=== PATIENT | female | born 1950 | race Caucasian/White ===

== ENCOUNTER → 2020-06-19 | Outpatient (CLI) | payer MEDICARE, OTHER ==
[~2020-06-19] MED LIST: ARAVA 20 MG TAB20 MG PO; AZITHROMYCIN250 MG PO; CLEOCIN HCL300 MG PO; COREG 25MG TAB25 MG PO; GABAPENTIN600 MG PO; HYDROCODON-ACE1 EAC6 PO; IBUPROFEN600 MG PO; PREDNISONE 20 M20 MG GT; PREDNISONE5 MG PO; SYMBICORT 80-10.2 GM INH; VENTOLIN HFA 66.7 GM INH
== END ==
LOC: ECHO 13:00
DX: Z01.810 Encounter for preprocedural cardiovascular examination (principal); I10 Essential (primary) hypertension; I07.1 Rheumatic tricuspid insufficiency
CPT/HCPCS: ECHO; 93306

== ENCOUNTER → 2020-07-27 | Outpatient (CLI) | payer MEDICARE, OTHER | LOC: KOH-I 10:18 | DX: R91.8 Other nonspecific abnormal finding of lung field (principal); N20.0 Calculus of kidney | CPT/HCPCS: 71250 ==

== ENCOUNTER 2020-09-20 20:36 | Inpatient (IN) | payer MEDICARE ==
[~2020-09-20] VITALS: Ht 152.4 cm; Wt 56.7 kg
[~2020-09-20 20:36] MED LIST changes: -ARAVA 20 MG TAB20 MG PO; -AZITHROMYCIN250 MG PO; -COREG 25MG TAB25 MG PO; -GABAPENTIN600 MG PO; -HYDROCODON-ACE1 EAC6 PO; -IBUPROFEN600 MG PO; -PREDNISONE 20 M20 MG GT; -PREDNISONE5 MG PO; -SYMBICORT 80-10.2 GM INH; -VENTOLIN HFA 66.7 GM INH
[2020-09-20 20:54] LABS: HEMOGLOBIN 13.7 gm/dl (12.3-15.3); RED BLOOD COUNT 4.24 M/UL (4.00-5.10); WHITE BLOOD COUNT 11.5 K/UL (4.5-11.0)
[2020-09-20 21:15] LABS: BUN/CREATININE RATIO 16 (0-10)
[2020-09-21] MEDS ORDERED: IBUPROFEN600 MG PO (09:23)
[2020-09-21] MEDS ORDERED: ARAVA 20 MG TAB20 MG PO (09:24)
[2020-09-21] MEDS ORDERED: VENTOLIN HFA 66.7 GM INH (09:25)
[2020-09-21] MEDS ORDERED: COREG 25MG TAB25 MG PO (09:27)
[2020-09-21] MEDS ORDERED: SYMBICORT 80-10.2 GM INH (09:29)
[2020-09-21] MEDS ORDERED: HYDROCODON-ACE1 EAC6 PO (09:30)
[2020-09-21] MEDS ORDERED: GABAPENTIN600 MG PO (09:31)
[2020-09-21] MEDS ORDERED: PREDNISONE5 MG PO (09:35)
--- NOTE | 2020-09-21 09:44 | NUR ---
Reviewed pharmacy list from [facility] with patient and she verified home meds.
[2020-09-22 04:25] LABS: HEMOGLOBIN 12.3 gm/dl (12.3-15.3); RED BLOOD COUNT 3.94 M/UL (4.00-5.10); WHITE BLOOD COUNT 8.4 K/UL (4.5-11.0)
[2020-09-22 04:46] LABS: BUN/CREATININE RATIO 32 (0-10)
[2020-09-22] MEDS ORDERED: PREDNISONE 20 M20 MG GT (09:08)
[2020-09-22] MEDS ORDERED: AZITHROMYCIN250 MG PO (09:08)
== END 2020-09-22 11:21 | disposition home or self-care (01) | DRG 189 ==
LOC: ER1 20:36 → M/S 23:55 → CDU 23:55 → M/S 09-21 02:23
PROVIDERS: Emergency Medicine; ADMIT Internal Medicine
DX: J96.01 Acute respiratory failure with hypoxia (principal); G93.41 Metabolic encephalopathy; J44.0 Chronic obstructive pulmonary disease with (acute) lower respiratory infection; Z20.822 Contact with and (suspected) exposure to COVID-19; J20.9 Acute bronchitis, unspecified; G89.29 Other chronic pain; F17.210 Nicotine dependence, cigarettes, uncomplicated; M06.9 Rheumatoid arthritis, unspecified; Z99.81 Dependence on supplemental oxygen; Z71.6 Tobacco abuse counseling; Z82.49 Family history of ischemic heart disease and other diseases of the circulatory system
CPT/HCPCS: 36600; 70450; 71045; 80048; 80053; 81001; 82550; 82553; 82803; 83605; 83735; 83874; 83880; 84100; 84484; 85025; 85652; 86140; 87040; 87086; 93005; 94640; 94760; 96365; 96366; 96368; 96375; 99285; J0456; J0692; J1650; J2920; J2930; J3370; J7030; Q9967; U0002

== ENCOUNTER 2021-04-11 17:48 | Inpatient (IN) | payer MEDICARE ==
[~2021-04-11] VITALS: Ht 154.9 cm; Wt 56.7 kg
[~2021-04-11 17:48] MED LIST changes: +ARAVA 20 MG TAB20 MG PO; +AZITHROMYCIN250 MG PO; +COREG 25MG TAB25 MG PO; +GABAPENTIN600 MG PO; +HYDROCODON-ACE1 EAC6 PO; +IBUPROFEN600 MG PO; +PREDNISONE 20 M20 MG GT; +PREDNISONE5 MG PO; +SYMBICORT 80-10.2 GM INH; +VENTOLIN HFA 66.7 GM INH
[2021-04-11 18:42] LABS: HEMOGLOBIN 15.4 gm/dl (12.3-15.3); RED BLOOD COUNT 4.8 M/UL (4.00-5.10); WHITE BLOOD COUNT 9.6 K/UL (4.5-11.0)
[2021-04-11 19:15] LABS: BUN/CREATININE RATIO 13 (0-10)
[2021-04-12] MEDS ORDERED: ROBAXIN 750 MG750 MG PO (00:35)
[2021-04-12] MEDS ORDERED: HYDROCODON-ACE1 EAC6 PO (00:35)
[2021-04-12] MEDS ORDERED: GABAPENTIN600 MG PO (00:36)
[2021-04-12 06:56] LABS: HEMOGLOBIN 14.8 gm/dl (12.3-15.3); RED BLOOD COUNT 4.68 M/UL (4.00-5.10); WHITE BLOOD COUNT 7.2 K/UL (4.5-11.0)
[2021-04-12 07:17] LABS: BUN/CREATININE RATIO 28 (0-10)
[2021-04-12] MEDS ORDERED: NORVASC10 MG PO (18:07)
[2021-04-12] MEDS ORDERED: ZEBETA 5 MG TAB5 MG PO (18:07)
[2021-04-12] MEDS ORDERED: ZITHROMAX250 MG PO (18:07)
[2021-04-12] MEDS ORDERED: NICOTINE PATCH1 EAC1 TD (18:10)
[2021-04-13 05:16] LABS: ACINETOBACTER BAUMANNII Not Detected (Negative); CANDIDA ALBICANS Not Detected (Negative); CANDIDA KRUSEI Not Detected (Negative); CANDIDA TROPICALIS Not Detected (Negative); ENTEROCOCCUS Not Detected (Negative); ESCHERICHIA COLI Not Detected (Negative); HAEMOPHILUS INFLUENZAE Not Detected (Negative); KLEBSIELLA OXYTOCA Not Detected (Negative); KLEBSIELLA PNEUMONIAE Not Detected (Negative); KPC-CARBAPENEM-RESISTANCE GENE Not Detected (Negative); PROTEUS Not Detected (Negative); PSEUDOMONAS AERUGINOSA Not Detected (Negative); SERRATIA MARCESANS Not Detected (Negative); STAPHYLOCOCCUS AUREUS Not Detected (Negative); STREP AGALACTIAE (GROUP B) Not Detected (Negative); STREP PYOGENES (GROUP A) Not Detected (Negative); STREPTOCOCCUS Not Detected (Negative); mecA (METHICILLIN RESIST GENE Not Detected (Negative); vanA/B (VANCOMYCIN RESIST GENE Not Detected (Negative)
[2021-04-13 05:18] LABS: STAPHYLOCOCCUS DETECTED (Negative)
== END 2021-04-12 20:05 | disposition home or self-care (01) | DRG 189 ==
LOC: ER1 17:48 → CDU 20:46 → MED SURG 4 20:46
PROVIDERS: Family Medicine; Internal Medicine; ADMIT Internal Medicine Infectious Disease
DX: J96.01 Acute respiratory failure with hypoxia (principal); J44.1 Chronic obstructive pulmonary disease with (acute) exacerbation; J20.9 Acute bronchitis, unspecified; I16.0 Hypertensive urgency; M06.9 Rheumatoid arthritis, unspecified; I51.7 Cardiomegaly; R91.1 Solitary pulmonary nodule; F17.210 Nicotine dependence, cigarettes, uncomplicated; I36.1 Nonrheumatic tricuspid (valve) insufficiency; Z20.822 Contact with and (suspected) exposure to COVID-19; G89.29 Other chronic pain; M51.36 Other intervertebral disc degeneration, lumbar region; Z79.52 Long term (current) use of systemic steroids; Z98.890 Other specified postprocedural states; Z79.899 Other long term (current) drug therapy; Z71.6 Tobacco abuse counseling
CPT/HCPCS: 0240U; 36600; 71045; 80048; 80053; 81001; 82550; 82553; 82803; 83605; 83874; 83880; 84484; 85025; 85610; 87040; 87077; 87150; 87186; 93005; 94640; 94664; 94760; 96374; 96375; 99285; J0456; J0696; J2920; J2930; J7030

== ENCOUNTER → 2021-05-26 | Outpatient (CLI) | payer MEDICARE ==
[~2021-05-26] MED LIST changes: +NICOTINE PATCH1 EAC1 TD; +NORVASC10 MG PO; +ROBAXIN 750 MG750 MG PO; +ZEBETA 5 MG TAB5 MG PO; +ZITHROMAX250 MG PO
== END ==
LOC: KOH-I 05-20 08:00
DX: S91.105A Unspecified open wound of left lesser toe(s) without damage to nail, initial encounter (principal); S93.335A Other dislocation of left foot, initial encounter; M20.12 Hallux valgus (acquired), left foot
CPT/HCPCS: 73718; 93926

== ENCOUNTER → 2021-06-28 | Outpatient (CLI) | payer MEDICARE | LOC: KOH-I 15:04 | DX: M86.9 Osteomyelitis, unspecified (principal); M24.474 Recurrent dislocation, right foot | CPT/HCPCS: 73718 ==

== ENCOUNTER 2021-07-19 19:16 | Inpatient (IN) | payer MEDICARE, OTHER ==
[~2021-07-19] VITALS: Ht 154.9 cm; Wt 52.6 kg
[~2021-07-19 19:16] MED LIST changes: -IBUPROFEN600 MG PO; -ROBAXIN 750 MG750 MG PO; -SYMBICORT 80-10.2 GM INH
[2021-07-19 20:17] LABS: HEMOGLOBIN 15.1 gm/dl (12.3-15.3); RED BLOOD COUNT 4.88 M/UL (4.00-5.10); WHITE BLOOD COUNT 17.6 K/UL (4.5-11.0)
[2021-07-19 20:46] LABS: BUN/CREATININE RATIO 11 (0-10)
[2021-07-20] MEDS ORDERED: ROBAXIN 750 MG750 MG PO (00:35)
[2021-07-20] MEDS ORDERED: HYDROCODON-ACE1 EAC6 PO (00:35)
[2021-07-20] MEDS ORDERED: GABAPENTIN600 MG PO (00:36)
[2021-07-20 05:32] LABS: HEMOGLOBIN 14.3 gm/dl (12.3-15.3); RED BLOOD COUNT 4.62 M/UL (4.00-5.10)
[2021-07-20 05:58] LABS: BUN/CREATININE RATIO 17 (0-10)
[2021-07-20] MEDS ORDERED: IBUPROFEN600 MG PO (09:23)
[2021-07-20] MEDS ORDERED: SYMBICORT 80-10.2 GM INH (09:29)
[2021-07-20] MEDS ORDERED: VOLTAREN ARTHRI20 GM TOP (10:17)
[2021-07-21 07:59] LABS: HEMOGLOBIN 13.5 gm/dl (12.3-15.3); RED BLOOD COUNT 4.28 M/UL (4.00-5.10); WHITE BLOOD COUNT 13.6 K/UL (4.5-11.0)
[2021-07-21 08:51] LABS: BUN/CREATININE RATIO 20 (0-10)
[2021-07-22 06:07] LABS: HEMOGLOBIN 12.8 gm/dl (12.3-15.3); RED BLOOD COUNT 4.17 M/UL (4.00-5.10); WHITE BLOOD COUNT 8.3 K/UL (4.5-11.0)
[2021-07-22 06:34] LABS: BUN/CREATININE RATIO 20 (0-10)
--- NOTE | 2021-07-22 10:14 | NUR ---
PT STAT 85% ON ROOM AIR
[2021-07-22] MEDS ORDERED: OMNICEF 300 MG300 MG PO (11:58)
[2021-07-22] MEDS ORDERED: AZITHROMYCIN250 MG PO (11:58)
[2021-07-23 17:09] LABS: CMV QUANT DNA PCR (PLASMA) Negative (Negative)
[2021-07-23 23:10] LABS: QUANTIFERON MITOGEN VALUE >10.00 IU/mL (.); QUANTIFERON NIL VALUE 0.02 IU/mL (.); QUANTIFERON TB1 AG VALUE 0.02 IU/mL (.); QUANTIFERON TB2 AG VALUE 0.02 IU/mL (.); QUANTIFERON-TB GOLD PLUS Negative (Negative)
== END 2021-07-22 12:16 | disposition home or self-care (01) | DRG 193 ==
LOC: ER1 19:16 → MED SURG 4 23:23 → CDU 23:23 → MED SURG 4 07-20 15:53
PROVIDERS: Internal Medicine; Internal Medicine Pulmonary Disease; Student in an Organized Health Care Education/Training Program; ADMIT Internal Medicine
DX: J18.9 Pneumonia, unspecified organism (principal); J96.01 Acute respiratory failure with hypoxia; E43 Unspecified severe protein-calorie malnutrition; D84.9 Immunodeficiency, unspecified; J44.0 Chronic obstructive pulmonary disease with (acute) lower respiratory infection; Z20.822 Contact with and (suspected) exposure to COVID-19; J98.4 Other disorders of lung; M06.9 Rheumatoid arthritis, unspecified; F17.210 Nicotine dependence, cigarettes, uncomplicated; L97.509 Non-pressure chronic ulcer of other part of unspecified foot with unspecified severity; M47.896 Other spondylosis, lumbar region; T39.95XA Adverse effect of unspecified nonopioid analgesic, antipyretic and antirheumatic, initial encounter; Z98.890 Other specified postprocedural states; Z82.49 Family history of ischemic heart disease and other diseases of the circulatory system; Z71.6 Tobacco abuse counseling; Z68.24 Body mass index [BMI] 24.0-24.9, adult
CPT/HCPCS: 36415; 36600; 71045; 80053; 80307; 82550; 82553; 82607; 82803; 83605; 83735; 84100; 84484; 85025; 85027; 85379; 85652; 86140; 86612; 87015; 87040; 87070; 87081; 87116; 87205; 87497; 93005; 94640; 94664; 94760; 96374; 96375; 97161; 99285; C9113; G0378; J0696; J1650; Q9967; U0002